=== PATIENT | female | born 1970 | race Caucasian/White ===

== ENCOUNTER 2021-06-24 19:57 | Inpatient (IN) | payer MEDICAID ==
[~2021-06-24] VITALS: Ht 157.5 cm; Wt 81.6 kg
--- NOTE | 2021-06-24 20:00 | NUR ---
PT BROUGHT TO BED 4 VIA JEANNE ALLEN
[2021-06-24 20:49] VITALS: BP 154/26
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
[2021-06-24] MEDS ORDERED: NACL 0.9% 1,000 ML IV ONE (21:45)
--- NOTE | 2021-06-24 21:55 | NUR ---
blood drawn and samples given to lacing presser.
[2021-06-24 22:07] LABS: HEMATOCRIT 23.1 % (36-48); HEMOGLOBIN 7.6 g/dL (12.0-16.0); MEAN CORPUSCULAR HEMOGLOBIN 27 pg (27-31); MEAN CORPUSCULAR HGB CONC 33 g/dL (33-37); MEAN CORPUSCULAR VOLUME 82.7 fL (80-94); PLATELET COUNT (AUTO) 588 K/uL (140-450); RED BLOOD CELL COUNT(AUTO) 2.79 MIL/uL (4.20-5.40); RED CELL DISTRIBUTION WIDTH 16.8 % (11.6-13.7)
[2021-06-24 22:28] LABS: PROTHROMBIN TIME 15.1 secs (10.8-13.4)
[2021-06-24 22:33] LABS: ALBUMIN 1.8 g/dL (3.4-5.0); ANION GAP 18.2 (8-16); ASPARTATE AMINOTRANSFERASE 45 U/L (15-37); CARBON DIOXIDE 25.5 mmol/L (21-32); CHLORIDE 90 mmol/L (98-107); GFR ARICAN-AMERICAN 6 mL/min (>90); SODIUM SERUM 127 mmol/L (136-145); TOTAL BILIRUBIN 0.9 mg/dL (0.0-1.0)
[2021-06-24 22:39] LABS: POTASSIUM 6.7 mmol/L (3.5-5.1)
[2021-06-24 22:40] LABS: GLUCOSE 27 mg/dL (74-106); UREA NITROGEN, BLOOD 76 mg/dL (7-18)
[2021-06-24 22:41] LABS: CREATININE 9.1 mg/dL (0.6-1.3)
[2021-06-24] MEDS ORDERED: DEXTROSE 50% 50 ML SYR IVP ONE ×3 (22:45→22:50)
--- NOTE | 2021-06-24 22:46 | NUR ---
critical lab: glucose 2.[address] Verduzco and dr. mauricio made aware. 1amp of dextrose per Dr. Verduzco given.
[2021-06-24] MEDS ORDERED: CALCIUM GLUCONATE 10% 1000 MG/10 ML VIAL IVP ONE (22:50)
[2021-06-24] MEDS ORDERED: INSULIN REGULAR, HUMAN 100 UNIT/ML VIAL IVP ONE (22:50)
[2021-06-24] MEDS ORDERED: PIPERACILLIN/TAZOBACTAM 3.375 GM in DEXTROSE 5% 50 ML IV ONE (22:50)
[2021-06-24] MEDS ORDERED: ALBUTEROL 0.083% 2.5 MG/3 ML NEBU INH ONE (22:50)
[2021-06-24] MEDS ORDERED: SODIUM ZIRCONIUM CYCLOSILICATE 10 GM POWD.PACK PO ONE (22:50)
[2021-06-24] MEDS ORDERED: CALCIUM GLU 1 GM/100 mL NS BAG 100 ML IV ONE (23:01)
[2021-06-24] MEDS ORDERED: CALCIUM GLUC 1 GM/50 mL NS BAG 50 ML IV ONE (23:01)
[2021-06-24] MEDS ORDERED: PIPERACILLIN/TAZOBACTAM 3.375 GM VIAL IV ONE (23:29)
[2021-06-25] MEDS ORDERED: MORPHINE SULFATE 4 MG/ML SYR IVP PRN (00:05)
[2021-06-25] MEDS ORDERED: MAGNESIUM OXIDE 400 MG TAB PO PRN (00:05)
[2021-06-25] MEDS ORDERED: ONDANSETRON 4 MG/2 ML VIAL IVP PRN (00:05)
[2021-06-25] MEDS ORDERED: KCL 20 MEQ/WATER INJ PREMIX 200 ML IV PRN (00:05)
[2021-06-25] MEDS ORDERED: MAG SULF 2000 MG/WATER PREMIX 50 ML IV PRN (00:05)
[2021-06-25] MEDS ORDERED: ACETAMINOPHEN 325 MG TAB PO PRN (00:05)
[2021-06-25] MEDS ORDERED: POTASSIUM CHLORIDE 10 MEQ TABER PO PRN (00:05)
[2021-06-25] MEDS ORDERED: DEXTROSE 50% 50 ML SYR IVP PRN (00:20)
[2021-06-25 01:00] LABS: PLATELET COUNT,MANUAL 588 K/uL (150-450)
[2021-06-25 01:02] LABS: LYMPHOCYTES % (MANUAL) 10 % (20-46)
--- NOTE | 2021-06-25 01:32 | NUR ---
Note undone in [facility] - 06/25/21 at 6 by [id number] STRAIGHT CATHETER DONE. URINE OUTPUT IS 900ML. URINE IS KASHMIR COLOR. Addendum: 06/25/21 at 0136 by [id number] Amendment undone in [facility] - 06/25/21 at 013 by [id number] STRAIGHT CATHETER DONE. 900ML OF DARK BROWN URINE DRAINED. URINE POC DONE AND SAMPLE SENT TO LAB.
--- NOTE | 2021-06-25 01:37 | NUR ---
STRAIGHT CATHETER DONE. 900ML OF DARK BROWN URINE DRAINED. URINE POC DONE AND SAMPLE SENT TO LAB.
--- NOTE | 2021-06-25 01:54 | NUR ---
PT CLEANED AND GOWNED. UNSTAGEABLE PRESSURE SORE ON SACRUM, OPEN INCISION ON LEFT BKA, AND EXCORATION ON ABDOMINAL FOLDS AND INNER GROIN PRESENT. wOUNDS CLEANED, PHOTOS TAKEN, AND NONADHERENT DRESSING PLACED.
[2021-06-25 02:32] LABS: APPEARANCE,URINE SL CLOUDY (CLEAR); BILIRUBIN,URINE 1+ (NEGATIVE); BLOOD, URINE TRACE-L (NEGATIVE); COLOR,URINE BROWN (YELLOW); LEUKOCYTE ESTERASE ,URINE 2+ (NEGATIVE); NITRITE, URINE POSITIVE (NEGATIVE); UGLUCOSE NEGATIVE (NEGATIVE)
[2021-06-25 02:34] LABS: RBC,URINE 20-50 /HPF (0-5)
[2021-06-25 02:35] LABS: WBC,URINE 20-60 /HPF (0-5)
[2021-06-25] MEDS ORDERED: LEVO500S PO (03:40)
[2021-06-25] MEDS ORDERED: [UNRECOGNIZED DRUG - CODE] PO (03:40)
[2021-06-25] MEDS ORDERED: MORPHINE SULFATE (03:40)
[2021-06-25] MEDS ORDERED: METR500T1 PO (03:40)
[2021-06-25] MEDS ORDERED: [UNRECOGNIZED DRUG - CODE] (03:40)
[2021-06-25] MEDS ORDERED: ATI.5 PO (03:40)
--- NOTE | 2021-06-25 05:11 | NUR ---
PT IS AWAKE, ALERT, VERBAL, ORIENTED TO NAME AND PLACE. pT IS ABLE TO VERBALIZE DISCOMFORT. PT CLEANED AND LINENS CHANGED.
[2021-06-25 06:13] LABS: BASOPHILS # (AUTO) 0.1 K/uL (0.00-0.22); BASOPHILS % (AUTO) 0.4 % (0.0-2.0); EOSINOPHILS % (AUTO) 0.1 % (0.0-4.0); HEMATOCRIT 20.9 % (36-48); LYMPHOCYTES # (AUTO) 2.5 K/uL (2.5-16.5); LYMPHOCYTES % (AUTO) 12.1 % (20.5-51.1); MEAN CORPUSCULAR HEMOGLOBIN 26 pg (27-31); MEAN CORPUSCULAR HGB CONC 31 g/dL (33-37); MEAN CORPUSCULAR VOLUME 83.5 fL (80-94); MONOCYTES # (AUTO) 2.2 K/uL (0.8-1.0); MONOCYTES % (AUTO) 10.6 % (1.7-9.3); NEUTROPHILS # (AUTO) 16.1 K/uL (1.8-7.7); NEUTROPHILS % (AUTO) 76.8 % (42.2-75.2); PLATELET COUNT (AUTO) 501 K/uL (140-450); RED BLOOD CELL COUNT(AUTO) 2.51 MIL/uL (4.20-5.40); RED CELL DISTRIBUTION WIDTH 17.2 % (11.6-13.7); WHITE BLOOD COUNT (AUTO) 20.9 K/uL (4.8-10.8)
[2021-06-25 06:14] LABS: HEMOGLOBIN 6.5 g/dL (12.0-16.0)
--- NOTE | 2021-06-25 06:37 | NUR ---
WOUND CULTURE SENT TO LAB: 1. SACRAL 2. LEFT BKA WOUND DEHISCENCE
--- NOTE | 2021-06-25 06:59 | NUR ---
paged Dr. Henderson for call back regarding pt's hgb 6.5.
--- NOTE | 2021-06-25 07:23 | NUR ---
handoff to Tammie Lunsford and TAMMIE Moncada. Pt is awake, alert, and oriented to name and place.
--- NOTE | 2021-06-25 07:23 | NUR ---
Report and continuation of care received from VALERIANO Prieto.
[2021-06-25 07:48] LABS: ALBUMIN 1.7 g/dL (3.4-5.0); ANION GAP 21.2 (8-16); CARBON DIOXIDE 23.1 mmol/L (21-32); MAGNESIUM 2.4 mg/dL (1.8-2.4); POTASSIUM 5.3 mmol/L (3.5-5.1); TOTAL BILIRUBIN 0.7 mg/dL (0.0-1.0)
[2021-06-25 08:01] LABS: CREATININE 9.4 mg/dL (0.6-1.3)
[2021-06-25] MEDS ORDERED: PIPERACILLIN/TAZOBACTAM 2.25 GM VIAL IV ONE (08:04)
--- NOTE | 2021-06-25 08:09 | NUR ---
Patient transported from bed 04 to bed 01.
[2021-06-25] MEDS: PIPERACILLIN/TAZOBACTAM 2.25 GM in DEXTROSE 5% 50 ML IV SCH ×2 (08:18→17:48)
[2021-06-25] MEDS: BLOOD GLUCOSE MONITORING 1 DEV DEV FS SCH ×3 (08:20→16:30)
--- NOTE | 2021-06-25 08:51 | NUR ---
Contacted [facility]; patient's business administration instructor: Mono Sandy [phone]
--- NOTE | 2021-06-25 08:55 | NUR ---
SPOKE TO DR MIGUEL, INFORMED OF CRITICAL LAB VALUES AND LACK OF DIALYSIS SINCE THE 6TH, RECEIVED ORDER FOR DR BONG LITTLE TO INPUT ORDERS FOR DIALYSIS WITH 1 UNIT OF BLOOD.
--- NOTE | 2021-06-25 09:00 | NUR ---
SPOKE TO NEHEMIAH REGARDING POWEER OF LIQUOR DEPARTMENT MANAGER PAPERWORK, SAID THAT SHE WOULD EMAIL THE PAPERWORK.
[2021-06-25] MEDS: PANTOPRAZOLE 40 MG INJ VIAL IVP SCH ×2 (09:26→22:30)
--- NOTE | 2021-06-25 09:48 | NUR ---
PT NOTED WITH N/V 150 CC DARK VOMITUS, GIVEN PRN ZOFRAN. MELENA NOTED
--- NOTE | 2021-06-25 10:09 | NUR ---
SPOKE TO DR GIGI LITTLE NURSING MANAGER REGARDING PT, INFORMED OF CRITICAL LAB VALUES AND DIALYSIS SINCE June, ORDER RECEIVED TO DO 1 ROUND OF DIALYSIS AND 1 UNIT OF BLOOD WITH DIALYSIS. SAID THEY WOULD BE COMING BY TO SEE THE PATIENT.
--- NOTE | 2021-06-25 10:40 | NUR ---
Patient will be admitted to care of DR TATUM. Admited to TELEMETRY. Will go to room 114. Belongings list completed. Report to MASSIEL BAL.
[2021-06-25 10:45] VITALS: BP 141/47
[2021-06-25] MEDS ORDERED: VANCOMYCIN PER PHARMACY MC PRN (15:40)
--- NOTE | 2021-06-25 15:51 | NUR ---
PATIENT HAS BEEN SCREENED AND CATEGORIZED HIGH NUTRITION RISK. PATIENT WILL BE SEEN WITHIN 1-2 [address] OF ADMISSION. PRABHA GARCIA RD
[2021-06-25 16:00] VITALS: BP 113/66
[2021-06-25] MEDS: EPOETIN ALFA-EPBX 10,000 UNITS/ML VIAL SUBQ SCH (17:48)
[2021-06-25] MEDS ORDERED: VANCOMYCIN 750 MG in DEXTROSE 5% 250 ML IV SCH (21:00)
[2021-06-26] MEDS: PIPERACILLIN/TAZOBACTAM 2.25 GM in DEXTROSE 5% 50 ML IV SCH ×3 (02:54→16:30)
--- NOTE | 2021-06-26 07:45 | NUR ---
patient transported to or for debriedment
[2021-06-26] MEDS ORDERED: fentaNYL citrate 0.05 MG/ML VIAL ONE (07:49)
[2021-06-26] MEDS ORDERED: SEVOFLURANE 250 ML BTL INH ONE (08:00)
[2021-06-26] MEDS ORDERED: BUPIVACAINE-MPF 0.25% 30 ML VIAL INJ ONE (08:05)
[2021-06-26] MEDS ORDERED: ePHEDrine 50 MG/ML VIAL ONE (08:40)
[2021-06-26] MEDS ORDERED: PROPOFOL 200 MG/20 ML VIAL IV ONE (08:40)
[2021-06-26] MEDS ORDERED: PHENYLEPHRINE 10 MG/ML VIAL ONE (08:52)
--- NOTE | 2021-06-26 08:56 | NUR ---
DC PLANNING: THE PATIENT ADMITTED FROM HOME AFTER DECOMPENSATING AT HOME UNDER HOSPICE CARE. THE PATIENT HAS BEEN ON [facility] SINCE 06/21 BUT DECIDED ON THE DAY OF ADMISSION THAT SHE DID NOT WANT TO AND WAS THEN BROUGHT IN TO THE HOSPITAL. H/O DM, ESRD, DECUBITUS AND LEFT BKA. THE PATIENT HAS BEEN HOSPITALIZED THIS YEAR AT BOTH [facility] AND [facility] AND HAD THE BKA AT [facility], ALSO HAD A DEBRIDEMENT OF HER SACRAL WOUND THERE. PER THE PATIENTS AUNT THE PATIENT WAS ALSO DIAGNOSED WITH A LUNG MASS WHICH WAS NEGATIVE FOR CANCER ON BX. CM SPOKE WITH THE PATIENTS AUNT NEHEMIAH WHO IS ALSO HER DPOA FOR INFORMATION. THE PATIENT LIVES IN A GROUND FLOOR APARTMENT WITH HER BOYFRIEND AND MOTHER. PER NEHEMIAH BOTH THE PATIENT AND HER MOTHER ARE DEVELOPMENTALLY DELAYED. THE PATIENT HAS BEEN T[facility] CARE SINCE HER DISCHARGE FROM [facility], AND HAS DME OF FWW, WC, [facility], HOSPITAL BED, O2, ALSO DIAPERS. THE PATIENT AHD STOPPED DIALYSIS AND WAS IMMINENT ON THE DAY OF ADMISSION. SHE HAD DAILY NURSING VISITS AND FAMILY HAS BEEN PROVIDING HER 04/10 CARE. LAKEERA STATES THAT FAMILY WILL NOT BE ABLE TO CARE FOR HER AT HOME UPON DC, SNF PLACEMENT WAS DISCUSSED BUT NEHEMIAH ISN'T SURE THE PATIENT WILL AGREE TO PLACEMENT AND WILL SPEAK WITH HER. DC PLAN AT THIS TIME UNDETERMINED, WILL PROCEED BASED ON TREATMENT, NEEDS AND PATIENT CONDITION. CM WILL FOLLOW. Addendum: 06/26/21 at 0904 by Brenda Rider CM Amended: Links added. Addendum: 06/29/21 at 1526 by Rasheeda Boss RN DC PLANNING: CALLED [facility] [phone] SPOKE WITH WARD NOTIFIED HIM THAT PATIENT AGREED TO CONTINUE DIALYSIS AND NEEDS DIALYSIS CENTER AND CHAIR TIME. PER WARD WILL FIND OUT FROM THE RENAL TEAM AND CALL BACK CM TO FOLLOW. Addendum: 06/29/21 at 0485 by Rasheeda Boss RN DC PLANNING: CALLED [facility] [phone] SPOKE WITH MICHAEL COMPOSITION BOARD PRESS OPERATOR STATED PATIENT IS WITH THEM TO HAVE DIALYSIS, HE REQUESTED H&P, CXR AND CURRENT LAB TO BE FAXED TO [phone]. SINCE PATIENT HAD STOPPED DIALYSIS WILL ARRANGE DIALYSIS DAY AND CHAIR TIME. CM TO FOLLOW Addendum: 06/30/21 at 1225 by Brenda Rider CM DC PLANNING: EITAN SPOKE WITH MICHAEL AT [facility] ([phone]), PATIENT IS SCHEDULED FOR DIALYSIS ON TTS AT 2:15. EITAN SPOKE WITH EITAN HOPPER AT [facility] MULTIPLE TIMES ([phone]), NEW ORDER FOR A HOSPITAL BED TO BE DELIVERED TO THE HOME, ORDER AND CLINICAL PACKET FOR WOUND CARE WITH HOME HEALTH FAXED TO HIM. WARD WILL ARRANGE HOME HEALTH AND DIALYSIS TRANSPORT, EITAN ALSO SPOKE WITH THE PATIENTS AUNT NEHEMIAH TO UPDATE HER ON THE ARRANGEMENTS IN PROCESS AND THE DIALYSIS SCHEDULE. THE PATIENT WILL NEED TRANSPORT HOME, EITAN LEFT A MESSAGE WITH WARD AT [facility] TO LET HIM KNOW TO ARRANGE THIS. EITAN ALSO SPOKE WITH THE PATIENTS NURSE TO UPDATE HER ON THE POTENTIAL DC TODAY. EITAN WILL FOLLOW. Addendum: 06/30/21 at 1539 by Brenda Rider CM DC PLANNING: EITAN SPOKE WITH EITAN HOPPER AT [facility] TO LET HIM KNOW THAT [facility] HAS AN EARLIER CHAIR TIME OF 9:30. WARD WILL SPEAK WITH THE PATIENTS FAMILY TO GET THEIR PREFERENCE FOR TIME. HE DOES NOT HAVE AN ETA FOR THE DELIVERY OF THE HOSPITAL BED BUT WILL CALL THE NURSES STATION WHEN HE HAS ONE AND ALSO THE TIME FOR TRANSPORT. ABOVE ENDORSED TO THE CHARGE NURSE EITAN POLANCO WILL FOLLOW.
[2021-06-26] MEDS: PANTOPRAZOLE 40 MG INJ VIAL IVP SCH ×2 (09:00→20:13)
[2021-06-26] MEDS ORDERED: ONDANSETRON 4 MG/2 ML VIAL IVP PRN (09:25)
[2021-06-26] MEDS ORDERED: NACL 0.9% 1,000 ML IV SCH (09:25)
[2021-06-26] MEDS ORDERED: DEXTROSE 50% 50 ML SYR IVP SCH (09:35)
[2021-06-26 10:15] VITALS: BP 125/72
--- NOTE | 2021-06-26 10:20 | NUR ---
PATIENT RETURNED FROM OR, NO S/SX OF PAIN OR DISCOMFORT, REPORT RECEIVED FROM OR NURSE, PATIENT HAD DEBRIEDMENT DONE ON SACRUM AND LEFT WOUND STUMP, WOUNDS COVERED DRESSINGS DIT
[2021-06-26] MEDS ORDERED: DEXTROSE 10% 250 ML IV SCH (10:45)
--- NOTE | 2021-06-26 11:00 | NUR ---
PT WAS IN PROCEDURE WHEN ZOSYN WAS DUE AT 0800. PT IS NOW BACK ON THE FLOOR. PER DONG PHARMACIST, DO NOT GIVE THIS DOSE LATE JUST WAIT TO GIVE THE DOSE AT 1600. INFORMED THE NURSE CARING FOR PT.
--- NOTE | 2021-06-26 11:11 | NUR ---
06/26/21 RD INITIAL ASSESSMENT COMPLETED PLEASE REFER TO NUTRITION ASSESSMENT UNDER CARE ACTIVITY FOR ESTIMATED NUTRITIONAL NEEDS. 1. WHEN/IF MEDICALLY APPROPRIATE, RECOMMEND RENAL+CCHO 60GM DIET 2. RECOMMEND NEPRO AND SLY BID PER RD PROTOCOL 3. MONITOR NUTRITION-RELATED LAB VALUES 4. RD TO FOLLOW-UP 2-3 DAYS, HIGH RISK PRABHA GARCIA, RD
[2021-06-26] MEDS: BLOOD GLUCOSE MONITORING 1 DEV DEV FS SCH ×5 (11:16→20:13)
--- NOTE | 2021-06-26 11:19 | NUR ---
BLOOD GLUCOSE WAS NOT CHECKED BY TRAIN CLERK NURSE, BRAVO. ALREADY NOTIFIED TRAFFIC SIGNAL REPAIRER AMILCAR AND DIRECTOR KEVYN.
[2021-06-26] MEDS ORDERED: MORPHINE SULFATE 2 MG/ML SYR IVP PRN (11:25)
--- NOTE | 2021-06-26 13:03 | NUR ---
WOUND CARE EVALUATION NOTE: PT. HAS DEBRIDEMENT TO SACRALCOCCYX AND LEFT STUMP THIS AM. DRESSING DRY AND CLEAN. PT. ADMITTED WITH MULTIPLE SKIN ALTERATION INCLUDES SACRALCOCCYX PRESSURE INJURY. PT. IS AWAKE, ABLE TO ANSWER SIMPLE QUESTIONS. SKIN DRY WITH POOR TURGOR, ALL SURGICAL WOUNDS PENDING EVAL. DRESSING DRY AND CLEAN. POSITION PT. FOR COMFORT. PT. WITH LOW KARLA SCALE AT MODERATE TO HIGH RISK, CONTINUE TO FOLLOW PRESSURE INJURY PREVENTION INTERVENTIONS. CODI ISOFLEX MATTRESS AND PUMP IN PLACE AND FUNCTIONING. -LEFT THIGH DRY ABRASIONS SKIN PURPLE AND INTACT, 4X15CM -MOISTURE ASSOCIATED DERMATITIS TO GROINS, PERINEUM AND ANSON-ANAL, EROSIONS WITH SUPERFICIAL DEPTH TO GROINS -SKIN TEAR TO LEFT UPPER BACK 2X4X0.1CM WOUND BED RED , MOIST, NO ODOR, ANSON WOUND SKIN DRY SCABS -RIGHT HEEL BLANCHABLE REDNESS, SKIN MUSHY RECOMMENDATIONS: -APPLY HYDRAGUARD TO LIMBS AND TRUNK OF BODY BID AND PRN IF SOILING -PROVIDE GOOD ANSON-CARE Q2H AND APPLY Z GUARD TO GROINS, BUTTOCKS BID AND PRN IF SOILING -CLEANSE LEFT UPPER BACK SKIN TEAR, LEFT STUMP AND SACRALCOCCYX WOUNDS WITH NS, PAT DRY, APPLY HYDROGEL WITH OIL EMULSION DRESSING TO WOUND BED AND COVER WITH DRY DRESSING QD AND PRN IF SOILING -POSITIONING: TURN AND REPOSITION PATIENT Q 2H OR SOONER USE PILLOWS TO KEEP BONY PROMINENCES FROM DIRECT CONTACT WITH SURFACES USE REPOSITIONING WEDGES TO PROVIDE 30-DEGREE ANGLE FOR SIDE LYING POSITIONS OFFLOADING OR FOAM DRESSING TO ALL TUBING TO PREVENT MEDICAL DEVICES RELATED PRESSURE INJURY -RE-EVALUATING AND MANAGING INCONTINENCE MONITOR SKIN CONDITION DURING POSITION CHANGE DO NOT MASSAGE REDNESS, BONY PROMINENCES FREQUENT ANSON-CARE AND PROVIDE BARRIER CREAMS PRN IF SOILING MOISTURE CONTROL BY OFFER BED NOGUEIRA/URINAL /ABSORBENT PAD TO WICK AND HOLD MOISTURE KEEP SKIN DRY AND PROTECT FROM FRICTION -MANAGE FRICTION/SHEAR/MOBILITY KEEP HOB AT THE LOWEST LEVEL OF ELEVATION NO MORE THAN 30 DEGREE UNLESS OTHERWISE CONTRAINDICATED USE LIFT SHEET OR TRANSFER DEVICE TO MOVE PATIENT AND PREVENT LATERAL SHEER. PROTECT HEELS, ELBOWS BONY PROMINENCES WITH SKIN BERRIES OR FOAM DRESSING IF EXPOSED TO FRICTION OFFLOAD BILATERAL HEELS BY PLACING PILLOWS UNDER RIGHT CALF AND LEFT STUMP AT ALL TIMES, UNLESS OTHERWISE CONTRAINDICATED -PRESSURE REDISTRIBUTION SURFACE THERAPY CODI ISOFLEX VEE MATTRESS -NUTRITION: PLEASE FOLLOW RD RECOMMENDATIONS AND OFFER NUTRITION SUPPLEMENTS IF ORDERED PLEASE CONTACT WOUND CARE NURSE FOR ANY QUESTION AND CHANGE OF WOUND CONDITION Addendum: 06/26/21 at 1441 by Juan Soliz RN (Grace) CLARIFICATION ADMISSION RIGHT AND LEFT HIP SKIN TEARS ARE PRESSURE INJURIES STAGE 3. -RIGHT TROCHANTER 2X3X0.2CM WOUND BED RED AND MOIST, NO ODOR,WOUND EDGE FLAT AND ANSON-WOUND SKIN MOIST. -LEFT TROCHANTER 2X2X0.2CM WOUND BED RED AND MOIST, NO ODOR,WOUND EDGE FLAT AND ANSON-WOUND SKIN MOIST. RECOMMENDATIONS: CLEANSE R/L HIPS WOUNDS WITH NS, PAT DRY APPLY HYDROGEL WITH OIL EMULSION DRESSING AND COVER WITH DRY DRESSING QD AND PRN IF SOILING
[2021-06-26 17:19] VITALS: BP 108/60
--- NOTE | 2021-06-26 17:21 | NUR ---
PATIENT MOANING AND SCREAMING, C/O SEVERE PAIN IN LEFT LEG, IV MORPHINE ADMINISTERED PER EMAR
--- NOTE | 2021-06-26 18:34 | NUR ---
PATIENT RESTING COMFORTABLY IN BED, NO S/SX OF PAIN OR DSICOMFORT OBSERVED AT THIS TIME, WILL ENDORSE CARE TO PM NURSE
--- NOTE | 2021-06-26 19:20 | NUR ---
RECEIVED BEDSIDE REPORT FROM DAY RN. PT IS AAOX2. RESPIRATIONS ARE EQUAL AND UNLABORED ON ROOM AIR. C/C GEN WEAKNESS AND WORSEN ULCER. DX HYPERKALEMIA. PT HAD DEBRIDEMENT ON SACRAL ULCER AND L BKA STUMP D/T DEHISCENCE TODAY DRESSING IS C/D/I. PT HAS L UPPER CHEST PERMA CATH PER REPORT PT FROM HOME ON HOSPICE LAST DIALYSIS ON 06/17 WILL RESUME DIALYSIS TOMORROW. PT IS INCONTINENT OF B/B. ON FALL RISK, POC REVIEWED WITH PT. CALL LIGHT IS WITHIN REACH. WILL CONTINUE TO MONITOR.
[2021-06-26 20:00] VITALS: BP 99/61
--- NOTE | 2021-06-26 20:13 | NUR ---
VSS. BLOOD SUGAR 111 NO COVERAGE NEEDED. HENRIQUE MEDICATIONS GIVEN PER ORDERS. MED EDUCATION PROVIDED. ALL NEEDS MET. WILL CONTINUE TO MONITOR.
--- NOTE | 2021-06-26 22:10 | NUR ---
ROUNDS MADE. PT OBSERVED LAYING IN BED WITH EYES CLOSED. CHEST RISE AND FALL NOTED.CALL LIGHT IS WITHIN REACH.
[2021-06-26] MEDS: HYDRAGUARD CREAM TP SCH (23:50)
--- NOTE | 2021-06-27 | NUR ---
VITAL SIGNS ARE WITHIN NORMAL LIMITS. PATIENT WAS CLEANED HAD SMALL BM AND REPOSITION FOR COMFORT. ALL NEEDS MET. CALL LIGHT IS WITHIN REACH. WILL CONTINUE TO MONITOR.
--- NOTE | 2021-06-27 02:15 | NUR ---
PATIENT OBSERVED RESTING IN BED W/ EYES CLOSED CHEST RISE AND FALL NOTED. CALL LIGHT IS WITHIN REACH. WILL CONTINUE TO MONITOR.
[2021-06-27 04:00] VITALS: BP 108/60
--- NOTE | 2021-06-27 04:00 | NUR ---
VITAL SIGNS ARE WITHIN NORMAL LIMITS. ALL SAFETY MEASURES ARE IN PLACE. WILL CONTINUE TO MONITOR.
[2021-06-27] MEDS: BLOOD GLUCOSE MONITORING 1 DEV DEV FS SCH ×4 (06:15→21:22)
[2021-06-27 07:17] LABS: BASOPHILS # (AUTO) 0.1 K/uL (0.00-0.22); BASOPHILS % (AUTO) 0.5 % (0.0-2.0); EOSINOPHILS # (AUTO) 0.2 K/uL (0-0.4); EOSINOPHILS % (AUTO) 1.3 % (0.0-4.0); HEMATOCRIT 23.6 % (36-48); HEMOGLOBIN 7.7 g/dL (12.0-16.0); LYMPHOCYTES # (AUTO) 2.8 K/uL (2.5-16.5); LYMPHOCYTES % (AUTO) 18.3 % (20.5-51.1); MEAN CORPUSCULAR HEMOGLOBIN 27 pg (27-31); MEAN CORPUSCULAR HGB CONC 33 g/dL (33-37); MEAN CORPUSCULAR VOLUME 83.1 fL (80-94); MONOCYTES # (AUTO) 1.1 K/uL (0.8-1.0); MONOCYTES % (AUTO) 7.1 % (1.7-9.3); NEUTROPHILS # (AUTO) 11.1 K/uL (1.8-7.7); NEUTROPHILS % (AUTO) 72.8 % (42.2-75.2); PLATELET COUNT (AUTO) 473 K/uL (140-450); RED BLOOD CELL COUNT(AUTO) 2.84 MIL/uL (4.20-5.40); RED CELL DISTRIBUTION WIDTH 16.6 % (11.6-13.7); WHITE BLOOD COUNT (AUTO) 15.2 K/uL (4.8-10.8)
--- NOTE | 2021-06-27 07:20 | NUR ---
GAVE BEDSIDE REPORT TO DAY RN. PT ENDORSED IN STABLE CONDITION.
[2021-06-27 07:25] LABS: ALBUMIN 1.6 g/dL (3.4-5.0); ANION GAP 13.7 (8-16); CARBON DIOXIDE 26.7 mmol/L (21-32); MAGNESIUM 2.2 mg/dL (1.8-2.4); POTASSIUM 4.4 mmol/L (3.5-5.1); TOTAL BILIRUBIN 0.8 mg/dL (0.0-1.0)
--- NOTE | 2021-06-27 07:25 | NUR ---
RECEIVED BEDSIDE REPORT FROM BURGLAR ALARM SUPERINTENDENT NURSE FOR CONTINUITY OF CARE. PT IS AAOX2. RESPIRATIONS ARE EQUAL AND UNLABORED ON ROOM AIR. C/C GEN WEAKNESS AND WORSEN ULCER. DX HYPERKALEMIA. PT HAD DEBRIDEMENT ON SACRAL ULCER AND L BKA STUMP D/T DEHISCENCE 06/26/21. DRESSING IS C/D/I. PT HAS L UPPER CHEST PERMA CATH PER REPORT PT FROM HOME ON HOSPICE LAST DIALYSIS ON 06/17 WILL RESUME DIALYSIS TOMORROW. IV SITE ON RAC 18 G. INTACT AND PATENT. PT IS INCONTINENT OF B/B. ON FALL RISK, POC REVIEWED WITH PT. CALL LIGHT IS WITHIN REACH. WILL CONTINUE TO MONITOR.
[2021-06-27 07:31] LABS: CREATININE 4.9 mg/dL (0.6-1.3)
[2021-06-27 08:00] VITALS: BP 147/74
[2021-06-27] MEDS: PIPERACILLIN/TAZOBACTAM 2.25 GM in DEXTROSE 5% 50 ML IV SCH ×6 (08:50→23:40)
[2021-06-27] MEDS: PANTOPRAZOLE 40 MG INJ VIAL IVP SCH ×2 (09:12→21:14)
--- NOTE | 2021-06-27 09:45 | NUR ---
DIALYSIS NURSE AT BEDSIDE PREPARING PATIENT FOR HD TREATMENT.
[2021-06-27] MEDS: EPOETIN ALFA-EPBX 10,000 UNITS/ML VIAL SUBQ SCH (09:53)
--- NOTE | 2021-06-27 09:53 | NUR ---
ALL SCHEDULED MEDS GIVEN. PT IS STABLE. NO DISTRESS NOTED. WILL CONTINUE TO MONITOR.
--- NOTE | 2021-06-27 12:00 | NUR ---
HD TREATMENT COMPLETED. 1.5L OUTPUT. PT IS STABLE. NO DISTRESS NOTED. WILL CONTINUE TO MONITOR.
[2021-06-27] MEDS: INSULIN LISPRO SLIDING SCALE 100 UNITS/ML VIAL SUBQ PRN ×3 (12:24→21:23)
--- NOTE | 2021-06-27 13:10 | NUR ---
ASSISTED REGISTRATION REPRESENTATIVE IN CHANGING PATIENT. CHANGE WOUND DRESSINGS. PATIENT KEPT CLEAN AND DRY. DID WOUND CHANGES.
[2021-06-27] MEDS: HYDRAGUARD CREAM TP SCH (13:27)
[2021-06-27] MEDS: Z-GUARD PASTE TP SCH ×2 (13:28)
[2021-06-27] MEDS: SKINTEGRITY HYDROGEL TP SCH (13:28)
[2021-06-27] MEDS ORDERED: VANCOMYCIN 750 MG in DEXTROSE 5% 250 ML IV SCH (14:00)
[2021-06-27 16:00] VITALS: BP 140/45
--- NOTE | 2021-06-27 17:44 | NUR ---
BLOOD GLUCOSE CHECK WAS 198. ADMINISTERED 2 UNITS OF INSULIN SQ PER MD ORDERED.
--- NOTE | 2021-06-27 19:09 | NUR ---
ENDORSED TO MIDDLEWARE ARCHITECT NURSE FOR CONTINUITY OF CARE. PT IS STABLE.
--- NOTE | 2021-06-27 19:10 | NUR ---
RECEIVED ENDORSEMENT FROM VALERIANO LOZANO FOR CONTINUITY OF CARE. PATIENT IS STABLE AND AWAKE. A&OX3. VERBALLY RESPONSIVE AND ABLE TO COMMUNICATE NEEDS. ON ROOM AIR WITH NO APPARENT S/SX OF ACUTE DISTRESS. RESPIRATIONS EVEN AND UNLABORED WITH NO APPARENT S/SX OF ACUTE DISTRESS. PATIENT IS ON BEDRES. PATIENT HAS AN IV TO THE RAC 18G INTACT/PATENT WITH NS INFUSING AT 60 ML/HOUR. PLAN OF CARE AND WHITE COMMUNICATION BOARD UPDATED. ALL SAFETY MEASURES IN PLACE. BED IN LOW/LOCKED POSITION. CALL LIGHT WITHIN REACH. WILL CONTINUE TO MONITOR.
[2021-06-27 20:00] VITALS: BP 135/65
--- NOTE | 2021-06-27 20:00 | NUR ---
Patient's Plan of Care was discussed and reviewed with SENIOR GAME ADVISOR: AMANDA DIEHL
--- NOTE | 2021-06-27 21:14 | NUR ---
PROTONIX ADMINISTERED ORDERED BY .
--- NOTE | 2021-06-27 21:25 | NUR ---
ACCUCHECK PERFORMED PER MD ORDER. TOLERATED WELL. DENIES PAIN. RESPIRATIONS EVEN AND UNLABORED WITH NO APPARENT S/SX OF ACUTE DISTRESS. PATIENT DENIES SNACKS. WHITE COMMUNICATION BOARD UPDATED. ALL SAFETY MEASURES IN PLACE. CALL LIGHT WITHIN REACH. WILL CONTINUE TO MONITOR.
--- NOTE | 2021-06-27 23:25 | NUR ---
ANSWERED CALL LIGHT. TURNED OFF ROOM LIGHTS PER PATIENT REQUEST. DENIES PAIN. RESPIRATIONS EVEN AND UNLABORED WITH NO APPARENT S/SX OF ACUTE DISTRESS. ALL SAFETY MEASURES IN PLACE. BED IN LOW/LOCKED POSITION. WILL CONTINUE TO MONITOR.
[2021-06-28] MEDS: Z-GUARD PASTE TP SCH ×2 (01:09→13:03)
[2021-06-28] MEDS: HYDRAGUARD CREAM TP SCH ×2 (01:09→13:03)
--- NOTE | 2021-06-28 03:25 | NUR ---
CHECKED PATIENT. PATIENT IS STABLE AND ASLEEP. CHEST IS RISING AND FALLING EVENLY. RESPIRATIONS EVEN AND UNLABORED WITH NO APPARENT S/SX OF ACUTE DISTRESS. WHITE COMMUNICATION BOARD UPDATED. ALL SAFETY MEASURES IN PLACE. BED IN LOW/LOCKED POSITION. WILL CONTINUE TO MONITOR.
[2021-06-28 04:00] VITALS: BP 143/123
--- NOTE | 2021-06-28 05:25 | NUR ---
ROUNDED ON PATIENT. PATIENT IS STABLE AND ASLEEP. CHEST IS RISING AND FALLING EVENLY. RESPIRATIONS EVEN AND UNLABORED WITH NO APPARENT S/SX OF ACUTE DISTRESS. ALL NEEDS MET. WHITE COMMUNICATION BOARD UPDATED. ALL SAFETY MEASURES IN PLACE. BED IN LOW/LOCKED POSITION. WILL CONTINUE TO MONITOR.
[2021-06-28] MEDS: BLOOD GLUCOSE MONITORING 1 DEV DEV FS SCH ×4 (06:36→21:00)
[2021-06-28 06:56] LABS: BASOPHILS # (AUTO) 0.1 K/uL (0.00-0.22); BASOPHILS % (AUTO) 0.7 % (0.0-2.0); EOSINOPHILS # (AUTO) 0.2 K/uL (0-0.4); EOSINOPHILS % (AUTO) 1.5 % (0.0-4.0); HEMATOCRIT 23.2 % (36-48); HEMOGLOBIN 7.4 g/dL (12.0-16.0); LYMPHOCYTES # (AUTO) 2.7 K/uL (2.5-16.5); LYMPHOCYTES % (AUTO) 21.6 % (20.5-51.1); MEAN CORPUSCULAR HEMOGLOBIN 26 pg (27-31); MEAN CORPUSCULAR HGB CONC 32 g/dL (33-37); MEAN CORPUSCULAR VOLUME 83.3 fL (80-94); NEUTROPHILS # (AUTO) 8.5 K/uL (1.8-7.7); NEUTROPHILS % (AUTO) 68.2 % (42.2-75.2); PLATELET COUNT (AUTO) 429 K/uL (140-450); RED BLOOD CELL COUNT(AUTO) 2.79 MIL/uL (4.20-5.40); RED CELL DISTRIBUTION WIDTH 16.4 % (11.6-13.7); WHITE BLOOD COUNT (AUTO) 12.4 K/uL (4.8-10.8)
[2021-06-28 07:17] LABS: ALBUMIN 1.4 g/dL (3.4-5.0); ANION GAP 13.2 (8-16); CARBON DIOXIDE 24.1 mmol/L (21-32); CREATININE 3.2 mg/dL (0.6-1.3); PHOSPHORUS 2.7 mg/dL (2.5-4.9); POTASSIUM 3.3 mmol/L (3.5-5.1); TOTAL BILIRUBIN 0.7 mg/dL (0.0-1.0)
--- NOTE | 2021-06-28 07:30 | NUR ---
RECEIVED BEDSIDE REPORT FROM CRAFT WORKER NURSE FOR CONTINUITY OF CARE. PT IS AAOX3. RESPIRATIONS ARE EQUAL AND UNLABORED ON ROOM AIR. PT HAD DEBRIDEMENT ON SACRAL ULCER AND L BKA STUMP D/T DEHISCENCE 06/26/21. DRESSING IS C/D/I. PT HAS R UPPER CHEST PERMA CATH PER REPORT PT FROM HOME ON HOSPICES/P DIALYSIS ON 06/27. IV SITE ON RAC 18 G. INTACT AND PATENT. PT IS INCONTINENT OF B/B. ON FALL RISK, POC REVIEWED WITH PT. CALL LIGHT IS WITHIN REACH. WILL CONTINUE TO MONITOR.
--- NOTE | 2021-06-28 07:30 | NUR ---
ENDORSED PATIENT TO VALERIANO LOZANO FOR CONTINUITY OF CARE. PATIENT IS STABLE.
[2021-06-28 08:00] VITALS: BP 138/83
[2021-06-28] MEDS: PANTOPRAZOLE 40 MG INJ VIAL IVP SCH (08:27)
[2021-06-28] MEDS: PIPERACILLIN/TAZOBACTAM 2.25 GM in DEXTROSE 5% 50 ML IV SCH ×2 (08:27→16:00)
[2021-06-28] MEDS ORDERED: MIDAZOLAM 2 MG/2 ML VIAL ONE (08:52)
[2021-06-28] MEDS ORDERED: diphenhydrAMINE 50 MG/ML VIAL ONE (08:52)
[2021-06-28] MEDS ORDERED: fentaNYL citrate 0.05 MG/ML VIAL ONE (08:52)
[2021-06-28] MEDS ORDERED: ENOXAPARIN 30 MG/0.3 ML SYR SUBQ SCH (09:00)
[2021-06-28] MEDS ORDERED: ENOXAPARIN 40 MG/0.4 ML SYR SUBQ SCH (09:00)
--- NOTE | 2021-06-28 09:45 | NUR ---
OR NURSES AT BEDSIDE PREPARING TO TRANSFER PATIENT TO OR
--- NOTE | 2021-06-28 10:28 | NUR ---
PATIENT COMPLETED EGD PROCEDURE. PT TRANSFERRED BACK TO ROOM WITH 2L NC. PT IS STABLE. WILL CONTINUE TO MONITOR.
[2021-06-28] MEDS ORDERED: fentaNYL citrate 0.05 MG/ML VIAL IVP ONE (10:45)
[2021-06-28] MEDS ORDERED: MIDAZOLAM 2 MG/2 ML VIAL IVP ONE (10:45)
[2021-06-28] MEDS: INSULIN LISPRO SLIDING SCALE 100 UNITS/ML VIAL SUBQ PRN (12:39)
[2021-06-28] MEDS ORDERED: POTASSIUM CHLORIDE 20% 40 MEQ/15 ML UDC PO PRN (12:40)
[2021-06-28] MEDS: SKINTEGRITY HYDROGEL TP SCH (13:03)
[2021-06-28] MEDS: SUCRALFATE 1 GM TAB PO SCH ×3 (13:30→23:43)
--- NOTE | 2021-06-28 13:40 | NUR ---
ALL SCHEDULED MEDS GIVEN. PT IS STABLE. NO DISTRESS NOTED. WILL CONTINUE TO MONITOR.
--- NOTE | 2021-06-28 14:00 | NUR ---
CHANGED WOUND DRESSING AND ASSISTED PMP CERTIFIED PROJECT MANAGER IN BATHING PATIENT. KEPT CLEAN AND DRY. PT IS STABLE. NO DISTRESS NOTED. WILL CONTINUE TO MONITOR.
--- NOTE | 2021-06-28 16:55 | NUR ---
ALL SCHEDULED MEDS GIVEN. PT IS STABLE. NO DISTRESS NOTED. WILL CONTINUE TO MONITOR.
--- NOTE | 2021-06-28 19:19 | NUR ---
ENDORSED TO RENAL DIETITIAN NURSE FOR CONTINUITY OF CARE. PT IS STABLE.
[2021-06-28 20:00] VITALS: BP 138/90
--- NOTE | 2021-06-28 23:37 | NUR ---
PATIENT ON ROOM AIR MISSING TEETH IN FRONT OF MOUTH LUNGS DIMINISH SAT 98%. HAS A LEFT BKA ALERT X3 HAS SACRAL ULCER. BLOOD SUGAR 106 NO INSULIN GIVEN. NO C/O OF PAIN.
[2021-06-28] MEDS: PANTOPRAZOLE 40 MG TABEC PO SCH (23:44)
[2021-06-29] VITALS: BP 135/88
[2021-06-29] MEDS: PIPERACILLIN/TAZOBACTAM 2.25 GM in DEXTROSE 5% 50 ML IV SCH ×3 (00:07→16:00)
[2021-06-29] MEDS: HYDRAGUARD CREAM TP SCH ×2 (01:00→13:00)
[2021-06-29] MEDS: Z-GUARD PASTE TP SCH ×2 (01:00→13:00)
[2021-06-29 05:53] LABS: BASOPHILS # (AUTO) 0.1 K/uL (0.00-0.22); BASOPHILS % (AUTO) 0.7 % (0.0-2.0); EOSINOPHILS # (AUTO) 0.2 K/uL (0-0.4); EOSINOPHILS % (AUTO) 1.8 % (0.0-4.0); LYMPHOCYTES % (AUTO) 23.1 % (20.5-51.1); MEAN CORPUSCULAR HEMOGLOBIN 27 pg (27-31); MEAN CORPUSCULAR HGB CONC 32 g/dL (33-37); MEAN CORPUSCULAR VOLUME 83.5 fL (80-94); MONOCYTES % (AUTO) 7.7 % (1.7-9.3); NEUTROPHILS # (AUTO) 8.7 K/uL (1.8-7.7); NEUTROPHILS % (AUTO) 66.7 % (42.2-75.2); PLATELET COUNT (AUTO) 435 K/uL (140-450); RED BLOOD CELL COUNT(AUTO) 2.64 MIL/uL (4.20-5.40); RED CELL DISTRIBUTION WIDTH 16.4 % (11.6-13.7)
[2021-06-29 06:03] LABS: ALBUMIN 1.3 g/dL (3.4-5.0); ANION GAP 13.6 (8-16); MAGNESIUM 2.1 mg/dL (1.8-2.4); PHOSPHORUS 2.6 mg/dL (2.5-4.9); POTASSIUM 3.6 mmol/L (3.5-5.1); TOTAL BILIRUBIN 0.8 mg/dL (0.0-1.0)
--- NOTE | 2021-06-29 07:30 | NUR ---
recived patient from pm nurse, resting in bed no s/sz of pain or discomfort, will assume all care
[2021-06-29] MEDS: SUCRALFATE 1 GM TAB PO SCH ×4 (08:22→20:33)
[2021-06-29] MEDS: PANTOPRAZOLE 40 MG TABEC PO SCH ×2 (08:22→20:34)
[2021-06-29] MEDS: BLOOD GLUCOSE MONITORING 1 DEV DEV FS SCH ×4 (08:22→21:00)
[2021-06-29 11:38] LABS: MAGNESIUM 2.2 mg/dL (1.8-2.4)
[2021-06-29 12:00] VITALS: BP 139/90
--- NOTE | 2021-06-29 12:15 | NUR ---
SW ATTEMPTED TO CONTACT NEHEMIAH HARRIS AT TO DISCUSS AND GATHER ADDITIONAL INFORMATION ON PATIENT WELL DISCUSSING PATIENT'S DISCHARGE PLAN. MRS. HARRIS WAS UNAVAILABLE AND DID NOT ANSWER THE CALL SW LEFT HER A MSG WITH DIRECT CONTACT NUMBER AND REQUEST FOR A CALL BACK. MANUELA WILL FOLLOW UP NEEDED.
--- NOTE | 2021-06-29 12:32 | NUR ---
06/29/21 RD FOLLOW UP COMPLETED PLEASE REFER TO NUTRITION ASSESSMENT UNDER CARE ACTIVITY FOR ESTIMATED NUTRITIONAL NEEDS. 1. CONTINUE RENAL DIET TOLERATED -WILL DOWNGRADE TEXTURE TO MECHANICAL SOFT D/T PT MISSING TEETH 2. RECOMMEND NEPRO AND SLY BID PER RD PROTOCOL 3. MONITOR NUTRITION-RELATED LAB VALUES 4. RD TO FOLLOW-UP 2-3 DAYS, HIGH RISK PRABHA GARCIA, RD
[2021-06-29] MEDS: SKINTEGRITY HYDROGEL TP SCH (13:00)
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
[2021-06-29] MEDS: INSULIN LISPRO SLIDING SCALE 100 UNITS/ML VIAL SUBQ PRN ×3 (17:21→22:56)
--- NOTE | 2021-06-29 19:16 | NUR ---
patient resting comfortably in bed, no s/sx of pain or discomfort observed at this time, will endorse care to pm nurse
--- NOTE | 2021-06-29 19:17 | NUR ---
RECEIVED PT ON BED FROM DAY SHIFT NURSE FOR CONTINUITY OF CARE.
[2021-06-29 20:00] VITALS: BP 133/65
--- NOTE | 2021-06-29 20:30 | NUR ---
PT ON BED AWAKE AND ALERT. COOPERATIVE WITH TREATMENT PLAN. NO SOB OR DISTRESS. SAFETY MEASURES IN PLACE, CALL LIGHT IN REACH.
--- NOTE | 2021-06-29 22:30 | NUR ---
PT AWAKE AND ALERT. ON STABLE CONDITION. NO SOB OR DISTRESS. SAFETY MEASURES IN PLACE, CALL LIGHT WITHIN REACH.
[2021-06-30] MEDS: PIPERACILLIN/TAZOBACTAM 2.25 GM in DEXTROSE 5% 50 ML IV SCH ×3 (00:59→16:00)
[2021-06-30] MEDS: HYDRAGUARD CREAM TP SCH ×2 (01:00→14:01)
--- NOTE | 2021-06-30 01:00 | NUR ---
PT COOPERATIVE WITH SKIN CARE. PRESCRIBED CREAM APPLIED PER ORDER. NO SOB OR DISTRESS. CALL LIGHT ON EASY REACH, SAFETY MEASURES IN PLACE.
[2021-06-30] MEDS: Z-GUARD PASTE TP SCH ×2 (01:01→14:00)
[2021-06-30 04:00] VITALS: BP 136/73
--- NOTE | 2021-06-30 07:20 | NUR ---
ENDORSED TO MORNING NURSE FOR CONTINUITY OF PT CARE. PT IS ON STABLE CONDITION, NO SOB OR DISTRESS. SAFETY MEASURES IN PLACE, CALL LIGHT ON EASY REACH.
[2021-06-30] MEDS: BLOOD GLUCOSE MONITORING 1 DEV DEV FS SCH ×3 (07:30→16:30)
--- NOTE | 2021-06-30 08:00 | NUR ---
RECEIVED PATIENT LAYING IN BED, PATIENT AWAKE AND CONFUSED, PATIENT DENIES PAIN AT TIS TIME, LUNGS CLEAR AND BOWELS NORMAL ACTIVE, S1 ANS S2 HEARD UPON AUSCULTATION. PATIENT HAS A STAGE 4 PRESSURE ULCER ON SACRUM AND A BELOW THE KNEE AMPUTATION ON THE LEFT LEG, CHELSEA PRESENT. PATIENT BELONGINGS, CALL LIGHT WITHIN REACH, BED AT LOWEST POSITION AND LOCKED.
--- NOTE | 2021-06-30 09:00 | NUR ---
-S/P DEBRIDEMENT TO SACRALCOCCYX AND LEFT STUMP WOUNDS. ORDER CHANGE FOR LEFT STUMP PAINT WOUND WITH BETADINE SOLUTION BID AND CELLOPHANE BAG MACHINE OPERATOR Addendum: 06/30/21 at 1146 by Juan Soliz RN (Grace) RIGHT HEEL NONBLANCHABLE REDNESS 2X3CM SKIN INTACT AND MUSHY, OFFLOADING , HEEL RAISER APPLIED
[2021-06-30] MEDS: EPOETIN ALFA-EPBX 10,000 UNITS/ML VIAL SUBQ SCH (09:26)
[2021-06-30] MEDS: HYDROcodone/APAP 5/325 MG 1 TAB TAB PO PRN ×2 (09:27→14:00)
[2021-06-30] MEDS: PANTOPRAZOLE 40 MG TABEC PO SCH (09:27)
[2021-06-30] MEDS: SUCRALFATE 1 GM TAB PO SCH ×3 (09:27→17:32)
[2021-06-30] MEDS ORDERED: PANT40EC56 PO (11:06)
[2021-06-30] MEDS ORDERED: AMOX-1230 PO (11:06)
[2021-06-30] MEDS ORDERED: SUCR1TAB56 PO (11:06)
--- NOTE | 2021-06-30 12:00 | NUR ---
PATIENT IN BED COMPLAINING OF PAIN, PAIN MEDICATION GIVEN, PATIENT IS COOPERATIVE AND IS ABLE TO HAVE A CONVERSATION HOWEVER PATINE IS NOT FULLY AWARE OF SELF AT THE MOMENT. CALL LIGHT WITH IN REACH, BED AT LOWEST POSITION AND LOCKED.
[2021-06-30] MEDS: INSULIN LISPRO SLIDING SCALE 100 UNITS/ML VIAL SUBQ PRN (12:41)
[2021-06-30] MEDS: SKINTEGRITY HYDROGEL TP SCH (13:00)
[2021-06-30] MEDS ORDERED: GAUZE TP SCH (13:00)
--- NOTE | 2021-06-30 13:00 | NUR ---
PAIN MEDICATION AFFECTIVE PATIENT DENIES PAIN AT THIS TIME.
--- NOTE | 2021-06-30 14:00 | NUR ---
DIALYSIS NURSE IS HERE PATIENT IS CURRENTLY BEING DIALYZED, PATIENT DENIES PAIN.
--- NOTE | 2021-06-30 14:50 | NUR ---
ORDERED HEPARIN FO THE DIALYSIS NURSE WELL ALBUMIN.
[2021-06-30 16:00] VITALS: BP 110/54
[2021-06-30] MEDS ORDERED: ALBUMIN HUMAN 25% 200 ML IV ONE (16:53)
[2021-06-30] MEDS ORDERED: ALBUMIN HUMAN 25% 200 ML IV SCH ×3 (17:00)
[2021-06-30] MEDS ORDERED: ALBUMIN HUMAN 25% 50 ML IV SCH (17:00)
[2021-06-30 17:56] VITALS: BP 110/54
--- NOTE | 2021-06-30 18:30 | NUR ---
DIALYSIS COMPLETE PATIENT LOST 1.2L OF BLOOD ACCORDING TO DIALYSIS NURSE. Addendum: 06/30/21 at 1833 by Agency Reyna BAL RN DIALYSIS COMPLETE PATIENT WITH AN OUTPUT OF 1.2L ACCORDING TO DIALYSIS NURSE.
--- NOTE | 2021-06-30 18:46 | NUR ---
CERTIFIED PERSONAL FINANCE COUNSELOR GRAYSON FROM [facility] CALLED AND GAVE AUTHORIZATION FOR TRANSPORT #[id number]. CALLED FAMILY TO CALL US WHEN BED IS DELIVERED AT THEIR HOME. WE WILL ARRANGE TRANSPORTATION AND WILL MAKE A WILL CALL.
--- NOTE | 2021-06-30 19:40 | NUR ---
RECEIVED PATIENT FROM AM NURSE AWAKE, ON ROOM AIR, NO S/S OF RESPIRATORY DISTRESS. BREATHING REGULAR NON LABORED. NO COMPLAINTS OF PAIN. ALL SAFETY PRECAUTIONS ARE IN PLACE. CALL LIGHT WITHIN REACH..
--- NOTE | 2021-06-30 22:20 | NUR ---
PATIENT WAS DISCHARGED HOME PICKED UP BY [facility] IN STABLE CONDITION. NO ACUTE DISTRESS. SACRAL DRESSING CHANGED. ALL BELONGINGS ARE WITH THE PATIENT. ALL PAPER WORKS GIVEN.
[2021-07-01] MEDS ORDERED: FOAM DRESSING TP SCH (13:00)
== END 2021-06-30 22:20 | disposition home or self-care (01) | DRG 305 ==
LOC: MED 19:57 → MTU 06-25 00:13
PROVIDERS: ADMIT Internal Medicine; ATTEND Internal Medicine
PROC: 30233N1 Transfusion of Nonautologous Red Blood Cells into Peripheral Vein, Percutaneous Approach (ICD-10-PCS; 2021-06-25)
PROC: 5A1D70Z Performance of Urinary Filtration, Intermittent, Less than 6 Hours Per Day (ICD-10-PCS; 2021-06-25)
PROC: 0Y6J0Z1 Detachment at Left Lower Leg, High, Open Approach (ICD-10-PCS; 2021-06-26)
PROC: 0JBP0ZZ Excision of Left Lower Leg Subcutaneous Tissue and Fascia, Open Approach (ICD-10-PCS; 2021-06-26)
PROC: 0JB70ZZ Excision of Back Subcutaneous Tissue and Fascia, Open Approach (ICD-10-PCS; principal; 2021-06-26 08:00)
PROC: 5A1D70Z Performance of Urinary Filtration, Intermittent, Less than 6 Hours Per Day (ICD-10-PCS; 2021-06-27)
PROC: 0DB78ZX Excision of Stomach, Pylorus, Via Natural or Artificial Opening Endoscopic, Diagnostic (ICD-10-PCS; 2021-06-29)
PROC: 5A1D70Z Performance of Urinary Filtration, Intermittent, Less than 6 Hours Per Day (ICD-10-PCS; 2021-06-30)
DX: T87.44 Infection of amputation stump, left lower extremity (principal); A41.9 Sepsis, unspecified organism; E43 Unspecified severe protein-calorie malnutrition; L89.150 Pressure ulcer of sacral region, unstageable; K25.4 Chronic or unspecified gastric ulcer with hemorrhage; E11.52 Type 2 diabetes mellitus with diabetic peripheral angiopathy with gangrene; J18.9 Pneumonia, unspecified organism; D62 Acute posthemorrhagic anemia; N18.6 End stage renal disease; E87.5 Hyperkalemia; N39.0 Urinary tract infection, site not specified; Z20.822 Contact with and (suspected) exposure to COVID-19; Y83.5 Amputation of limb(s) as the cause of abnormal reaction of the patient, or of later complication, without mention of misadventure at the time of the procedure; Z79.2 Long term (current) use of antibiotics; Z79.899 Other long term (current) drug therapy; Z91.15 Patient's noncompliance with renal dialysis; Y92.89 Other specified places as the place of occurrence of the external cause
CPT/HCPCS: 36415; 71045; 80053; 80202; 81001; 82728; 82948; 83540; 83605; 83735; 84100; 84484; 85025; 85610; 85730; 86886; 86900; 86901; 86920; 87040; 87070; 87081; 87086; 88305; 88312; 88313; 88342; 93005; 94640; 96374; 96375; 99285; A6248; C9113; J0610; J1200; J1644; J1650; J1815; J2250; J2270; J2370; J2405; J2543; J2704; J3010; J3370; J3490; J7030; J7060; J7613; P9016; P9046; Q0092; Q5106